=== PATIENT | female | born 1990 | race Caucasian/White ===

== ENCOUNTER 2016-04-30 17:21 | Emergency (ER) | payer MEDICAID, OTHER ==
[~2016-04-30] VITALS: Ht 157.5 cm; Wt 78.0 kg
[~2016-04-30 17:21] MED LIST: AMOX875T PO; HYDR-3533 PO
[2016-04-30 17:24] VITALS: BP 147/92; PULSE 116; RESP 16; TEMP 99.4; O2SAT 98
--- NOTE | 2016-04-30 18:23 | PD ---
HPI Chief Complaint: Injury Time Seen by Provider: 18:20 Travel History International Travel<30 days: No Contact w/Intl Traveler<30days: No Traveled to known affect area: No History of Present Illness HPI Patient's 18-year-old female. Clear of right ankle pain. She states proximal one hour prior to exam her foot slipped off of a curb and she stepped in a hole and suffered an inversion injury. She is able to bear weight for 2 steps but hasn't been unable to do so since. Has swelling on the lateral aspect of the right ankle. Pain medial and lateral and in the heel and diffusely in the foot. She denies pain in the knee or toes. He denies weakness and paresthesia. No history of surgery to this foot or ankle. Denies current . PFSH Past Medical History Hx Anticoagulant Therapy: No Diabetes: No Diminished Hearing: No Immunizations Current: Yes Influenza Vaccination: No ?: Not : 4 Para: 3 : 1 Past Surgical History Oral Surgery: Yes Other Surgery: Yes (BREAST AUGMENTATION) Social History Alcohol Use: Yes (WINE, SOCIALLY) Tobacco Use: No (vapes daily, never cigarette smoker) Substance Use: No Allergies-Medications (Allergen,Severity, Reaction): Coded Allergies: No Known Allergies (Verified , 04/30/16) Reported Meds & Prescriptions Reported Meds & Active Scripts Active Lortab (Hydrocodone-Acetaminophen) 7.5-325 Mg Tab 1 Tab PO Q6H PRN Review of Systems Musculoskeletal: Positive: Other (see the history of present illness) Neurologic: No: Weakness, Focal Abnormalities, Paresthesia, Sensory Disturbance Physical Exam Narrative GENERAL: Well-developed and well-nourished adult female in no acute distress. SKIN: Warm and dry. Good turgor without tenting. HEAD: Normocephalic and atraumatic. CARDIOVASCULAR: Regular rate and rhythm without murmurs, rubs, clicks or gallops. Dorsalis pedis and posterior tibial pulses 2+ bilaterally. Capillary refill less than 2 seconds this tip of all toes of right foot. RESPIRATORY: Clear to auscultation bilaterally with symmetrical rise and fall, no distress or use of accessory muscles. MUSCULOSKELETAL: Right ankle has edema on the lateral aspect without ecchymosis. Tenderness to palpation of the medial and lateral malleolus of the right ankle. Patient refuses to move ankle secondary to pain. Pain the fifth metatarsal without edema. No ecchymosis to the foot or ankle. Palpation of bilateral Achilles tendons reveals equal firmness and there is equal plantar flexion with squeezing the bilateral gastrocnemius. She denies any pain in the knee and has normal range of motion in the right knee with no tenderness to palpation. No increased laxity in the foot or ankle on the right. Patient freely moving all four extremities spontaneously. Extremities without clubbing or cyanosis. No obvious deformities. NEUROLOGIC: CN II-XII grossly intact. Awake and alert. Motor grossly within normal limits. Sensation intact distal tip of all toes of right foot. Normal speech. PSYCHIATRIC: Appropriate mood and affect; insight and judgment normal. Data Data Last Documented VS Vital Signs Date Time Temp Pulse Resp B/P Pulse Ox O2 Delivery O2 Flow Rate FiO2 04/30/16 17:24 99.4 116 16 147/92 98 Orders Ketorolac Inj (Toradol Inj) (04/30/16 18:30) Ankle, Complete ([id number]) (04/30/16 18:18) Foot, Complete ([id number]) (04/30/16 18:18) Ice/Cold Pack (04/30/16 18:18) Crutches (04/30/16 19:42) Splint Or Brace Apply/Monitor (04/30/16 19:42) MDM Medical Decision Making Medical Screen Exam Complete: Yes Emergency Medical Condition: Yes Interpretation(s) Last 24 hours Impressions Foot X-Ray 04/30/161817 Signed Impressions: Service Date/Time: Saturday, April 30, 2016 19:10 - CONCLUSION: Unremarkable examination of the right foot. Amari Rivas MD Ankle X-Ray 04/30/161817 Signed Impressions: Service Date/Time: Saturday, April 30, 2016 19:04 - CONCLUSION: Soft-tissue swelling seen laterally with a curvilinear density seen adjacent to the lateral aspect of the talus concerning for a possible avulsion fracture and sprain. Amari Rivas MD Differential Diagnosis Ankle sprain versus ankle fracture versus Key fracture versus foot sprain Narrative Course Patient's 26-year-old female with a right ankle inversion injury one hour prior to exam. She is neurovascularly intact. She has pain in the fifth metatarsal and diffusely in the ankle. Moderate edema. No evidence of Achilles or knee injury. Patient was given Toradol, ice and ordered x-ray of the foot and ankle. X-ray shows a linear density inferior fibula adjacent to the talus suggestive of mild avulsion fracture. Soft tissue swelling present as well. This is likely from the talus according to my read of the x-ray. Patient be placed in a splint and given prescription for Lortab. She has an orthopedist for other injuries in the past and will see them at the beginning of next week.See discharge paperwork for further instructions. The plan was discussed with the patient who acknowledged their understanding and agreement. Reinforced the follow-up with primary care is critically important. Patient instructed on emergent conditions that should prompt return to ED. Diagnosis Primary Impression: Avulsion fracture of right ankle Qualified Code: S82.891A - Avulsion fracture of right ankle, closed, initial encounter Patient Instructions: Ankle Fracture (ED), Avulsion Fracture (ED), General Instructions Additional Instructions: Take medications as prescribed Your medications may cause drowsiness. Do not take with alcohol or sedatives. Do not operate a motor vehicle or heavy machinery while on medication. Apply ice every 1 to 2 hours as needed for pain Keep splint on at all times. Do NOT remove until cleared. Do not get splint wet Avoid maneuvers that aggravate pain Elevate when at rest Follow-up with your orthopedist on Tuesday Return to the ED for any acute worsening of symptoms Med/Other Pt SpecificInfo: Prescription(s) given Scripts Hydrocodone-Acetaminophen (Lortab)7.5-325 Mg Tab1 Tab PO Q6H PRN (PAIN) #15 TAB Ref 0 Prov:Vijay Agee MD 04/30/16 Disposition: 01 DISCHARGE HOME Condition: Stable Amari Sandoval III Apr 30, 2016 18:23
[2016-04-30] MEDS ORDERED: KETOROLAC TROMETHAMINE 60 MG/2 ML (IM) VIAL IM ONE (18:30)
--- NOTE | 2016-04-30 19:26 | RADHPO ---
EXAM DATE/TIME: 04/30/2016 19:04 [facility] COMPARISON: ANKLE RIGHT COMPLETE ([id number]), February 16, 2016, 22:36. INDICATIONS : Entire right ankle pain after fall. MEDICAL HISTORY : None. SURGICAL HISTORY : None. ENCOUNTER: Initial ACUITY: 1 day PAIN SCORE: 9/10 LOCATION: Right ankle FINDINGS: The ankle is normally aligned. There are some curvilinear calcifications seen just lat eral to the talus. This could represent an avulsion fracture from a sprain. There is soft-tissue sw elling seen laterally. The remaining bony structures appear grossly intact. CONCLUSION: Soft-tissue swelling seen laterally with a curvilinear density seen adjacent to the l ateral aspect of the talus concerning for a possible avulsion fracture and sprain. Amari Rivas MD on April 30, 2016 at 19:20 Board Certified Radiologist. This report was verified electronically.
--- NOTE | 2016-04-30 19:31 | RADHPO ---
EXAM DATE/TIME: 04/30/2016 19:10 [facility] COMPARISON: FOOT RIGHT COMPLETE ([id number]), February 16, 2016, 22:38. INDICATIONS : Right heel pain after fall. MEDICAL HISTORY : None. SURGICAL HISTORY : None. ENCOUNTER: Initial ACUITY: 1 day PAIN SCORE: 9/10 LOCATION: Right heel FINDINGS: Three view examination of the right foot demonstrates no soft tissue swelling, dislocation, or fractu re. The tarsal bones appear intact. The interphalangeal and metatarsophalangeal joints are intact. The calcaneus is intact. Bony mineralization is normal. CONCLUSION: Unremarkable examination of the right foot. Amari Rivas MD on April 30, 2016 at 19:29 Board Certified Radiologist. This report was verified electronically.
[2016-04-30] MEDS ORDERED: HYDR-3534 PO (19:43)
== END 2016-04-30 20:29 | disposition home or self-care (01) ==
LOC: PHEFT 17:21
DX: S82.891A Other fracture of right lower leg, initial encounter for closed fracture (principal); F17.200 Nicotine dependence, unspecified, uncomplicated
CPT/HCPCS: 29515; 73610; 73630; 96372; 99283; E0113; J1885

== ENCOUNTER → 2016-05-03 | Outpatient (CLI) | payer MEDICAID, OTHER ==
[~2016-05-03] MED LIST changes: -AMOX875T PO; -HYDR-3533 PO; +HYDR-3534 PO
== END ==
LOC: HORT 09:35
PROVIDERS: ATTEND Orthopaedic Surgery
DX: S92.154A Nondisplaced avulsion fracture (chip fracture) of right talus, initial encounter for closed fracture (principal)
CPT/HCPCS: L2114

== ENCOUNTER 2017-03-03 09:03 | Emergency (ER) | payer MEDICAID ==
[~2017-03-03] VITALS: Ht 157.5 cm; Wt 78.2 kg
[2017-03-03 09:09] VITALS: BP 138/70; PULSE 101; RESP 18; TEMP 99.2; O2SAT 97
[2017-03-03] MEDS ORDERED: SODIUM CHLOR 0.9% 1000 ML INJ 1,000 ML IV SCH (10:09)
[2017-03-03] MEDS ORDERED: ONDANSETRON HCL 4 MG/2 ML VIAL IVP ONE (10:15)
--- NOTE | 2017-03-03 11:18 | PD ---
HPI Chief Complaint: Cold / Flu Symptoms Time Seen by Provider: 10:01 Travel History International Travel<30 days: No Contact w/Intl Traveler<30days: No Traveled to known affect area: No History of Present Illness HPI 26-year-old female here for evaluation of flulike symptoms 1 week. Patient reports multiple family members in the home with similar symptoms. She is reporting nasal congestion, cough, body aches, intermittent subjective fevers. She reports she had nausea/vomiting/diarrhea 2 days ago which has since resolved. She denies chest pain, shortness of breath, abdominal pain. Symptom severity is moderate. Early improved with OTC Tylenol. PFSH Past Medical History Medical History: Denies Significant Hx Hx Anticoagulant Therapy: No Diabetes: No Diminished Hearing: No Immunizations Current: Yes ?: Not LMP: 02/02/2017 : 4 Para: 3 : 1 Past Surgical History Oral Surgery: Yes Other Surgery: Yes (BREAST AUGMENTATION) Social History Alcohol Use: Yes (WINE, SOCIALLY) Tobacco Use: No (vapes daily, never cigarette smoker) Substance Use: No Allergies-Medications (Allergen,Severity, Reaction): Coded Allergies: No Known Allergies (Verified Adverse Reaction, Unknown, 03/03/17) Reported Meds & Prescriptions Reported Meds & Active Scripts Active No Active Prescriptions or Reported Medications Review of Systems Except as stated in HPI: all other systems reviewed are Neg Physical Exam Narrative GENERAL: Well-nourished, well-developed patient. SKIN: Focused skin assessment warm/dry. HEAD: Normocephalic. EYES: No scleral icterus. No injection or drainage. THROAT pharyngeal erythema without exudate or tonsillar hypertrophy NECK: Supple, trachea midline. No JVD or lymphadenopathy. No meningismus CARDIOVASCULAR: Regular rate and rhythm without murmurs, gallops, or rubs. RESPIRATORY: Breath sounds equal bilaterally. No accessory muscle use. GASTROINTESTINAL: Abdomen soft, non-tender, nondistended. MUSCULOSKELETAL: No cyanosis, or edema. BACK: Nontender without obvious deformity. No CVA tenderness. Data Data Last Documented VS Vital Signs Date Time Temp Pulse Resp B/P (MAP) Pulse Ox O2 Delivery O2 Flow Rate FiO2 03/03/17 09:09 99.2 101 18 138/70 (92) 97 Orders Orders Iv Access Insert/Monitor (03/03/17 10:09) Ondansetron Inj (Zofran Inj) (03/03/17 10:15) Sodium Chlor 0.9% 1000 Ml Inj (Ns 1000 M (03/03/17 10:09) Influenzae A/B Antigen (03/03/17 10:09) MDM Medical Decision Making Medical Screen Exam Complete: Yes Emergency Medical Condition: Yes Differential Diagnosis Influenza, viral illness, gastroenteritis Narrative Course 26-year-old female here for evaluation of flulike symptoms 1 week. Patient reports multiple family members in the home with similar symptoms. Her vital signs are stable. She is nontoxic appearing. Her abdomen is soft and nontender. Patient was given antinausea meds and 1 L fluid and felt symptom improvement after. Her rapid flu was negative. She appears to have a viral illness. Patient was encouraged to rest and stay hydrated. Patient verbalizes understanding and agrees to plan Diagnosis Primary Impression: Viral illness Referrals: Primary Care Physician Additional Instructions: Take [id number] Motrin 600 800 mg every 6-8 hours as needed for pain. Take the Zofran as needed for nausea. Rest and stay well hydrated by drinking plenty of fluids. Return to emergency department if he developed new or worsening symptoms. Scripts Ondansetron (Zofran) 4 Mg Tab 4 MG PO Q8HR Y for NAUSEA OR VOMITING for 5 Days, TAB 0 Refills Prov: Jacqueline Banks 03/03/17 Disposition: 01 DISCHARGE HOME Condition: Stable Jacqueline Banks Mar 03, 2017 11:18
[2017-03-03] MEDS ORDERED: ZOFR4TAB PO (11:19)
[2017-03-03 11:46] VITALS: BP 117/69
== END 2017-03-03 11:49 | disposition home or self-care (01) ==
LOC: PHED 09:03 → PHEFT 11:49
DX: B34.9 Viral infection, unspecified (principal); R09.81 Nasal congestion
CPT/HCPCS: 87804; 96361; 96374; 99284; J2405; J7030